=== PATIENT | female | born 1930 | race Caucasian/White ===

== ENCOUNTER 2018-03-05 11:20 | Outpatient (CLI) | payer MEDICARE | END 2018-03-05 11:21 | disposition home or self-care (01) | LOC: BICMRI 11:20 | PROVIDERS: ATTEND Internal Medicine | DX: R94.5 Abnormal results of liver function studies (principal); N28.1 Cyst of kidney, acquired; K83.8 Other specified diseases of biliary tract | CPT/HCPCS: 74181 ==